=== PATIENT | female | born 1990 | race Caucasian/White ===

== ENCOUNTER 2023-10-15 18:49 | Emergency (ER) | payer MEDICARE, BC, OTHER, SELFPAY ==
[2023-10-15 18:58] VITALS: BP 125/79
--- NOTE | 2023-10-15 19:03 | EDRN ---
AT 1845 UPON PT ARRIVAL TO THE ER PT COMBATIVE WITH ALL POLICE AND SECURITY SPITTING AT THEM WELL. PT SUBSEQUENTLY PLACED IN 4 POINT LOCKED RESTRAINTS. MD ARMAS AWARE AND RESTRAINTS ORDERED. NO MEDS GIVEN @ THIS TIME.
--- NOTE | 2023-10-15 19:06 | EDRN ---
DURING RN INITIAL ASSESSMENT PT WOULD NOT ANSWER QUESTIONS. TOLERATED VS.
--- NOTE | 2023-10-15 19:07 | EDRN ---
MD. ARMAS @ BEDSIDE.
--- NOTE | 2023-10-15 19:08 | EDRN ---
PER OFFICER JURGEN PT DID NOT HAVE ANY WEAPONS ON HER AND DID CHECK PATIENT FOR WEAPONS
--- NOTE | 2023-10-15 19:11 | ED.GENMED ---
History of Present Illness
General
Chief Complaint: Crisis Evaluation
Source: patient and police
Exam Limitations: none
Time Seen by Provider: 10/15/23 19:04
History of Present Illness
History of Present Illness:
32-year-old female brought in by police apparently threatening to hurt the police and a Bomb threat. States she wanted to kill people and the police. This was not stated to me. On hearing the secondhand. Patient does have a psychiatric history.
She states she is on a depressants and antianxiety medications. She is not sure the name. She states she did not take an overdose or try to hurt herself. She has no specific medical complaints at this time. She apparently is known to crisis.
Past History
Past History
ED Past Medical History: Psychiatric (Depression, anxiety, self-mutilation, suicidal ideation, anorexia, bulimia, compression fracture at C2); Negative Asthma, HTN, Hypercholesterolemia or NIDDM
ED Past Surgical History: None and Other (Multiple surgeries on the left forearm from putting foreign bodies under her skin)
Social History
Tobacco: Non-smoker
Alcohol: None
Drug: None
Personal: Single
Living: with family (custodial and family)
Employment: Not employed
Family History
Family History: Diabetes and Adopted
Review of Systems
Review of Systems
All Other Systems: Not applicable
Respiratory: Reports no symptoms
Cardiac: Reports no symptoms
ABD/GI: Reports no symptoms
Phy Exam
Physical Exam
Physical Exam:
GENERAL: Alert and oriented in no apparent distress. No signs of scalp trauma.
EYE: Orbits normal.
NECK: Supple
ENT: Pharynx without erythema
CARDIAC: Regular rate and rhythm without any obvious murmurs.
LUNGS: Clear breath sounds,normal
ABDOMEN: Soft, without focal tenderness or distention
NEUROLOGICAL: Alert and oriented , grossly non-focal
SKIN: Warm and dry, old scars to the left arm
MUSCULOSKELETAL: No edema,no deformity.Good color
PSYCH: Normal and appropriate interaction. Actually, very cooperative
Course
Orders/Labs/Results
Orders:
Orders
10/15/23 19:02
1:1 Observation - Suicide/ Violent Behavior As Directed
10/15/23 19:09
Crisis Consult Urgent
Reason for Consult: hallucinations
Vital Signs
Initial and Last Documented VS:
Initial Vital Signs
Resp
16
10/15/23 18:52
Last Documented Vital Signs
Temp Pulse Resp BP Pulse Ox
97.8 F 87 16 125/79 95
10/15/23 19:00 10/15/23 18:58 10/15/23 18:58 10/15/23 18:58 10/15/23 18:58
MDM/Problems Addressed
Differential Diagnosis Includes:
Patient cooperative at this time. Does not want any medications to call her. I cannot force anything on her at this time. She also refuses labs. Clinically no acute medical issues. Discussed with crisis.
*Critical Care Note
Total Time (30-74mins, 75-104mins- exclusive of procedures): Not Applicable
Data Reviewed
Review of Other/Old Records Reveals: Records
Update Note
Update Note:
302 upheld and signed. Seen by telepsych.
ED Attending Note
-
Portions of this chart may have been created with voice recognition software.� Occasional wrong word or��sound alike� substitutions may have occurred due to the inherent limitations of voice recognition software.
Discharge Plan
Departure
Patient Disposition: Psych Facility
Date of Disposition: 10/16/23
Time of Disposition: 01:00
Discharge Problem:
Threatening behavior, Bipolar disorder
Prescriptions:
No Action
prazosin 5 MG capsule
5 mg PO HS
haloperidol 2 MG tablet
2 mg PO Q8 Qty: 0 0RF
diphenhydramine HCl [Banophen] 25 MG capsule
50 mg PO BID Qty: 0 0RF
gabapentin 300 MG capsule
300 mg PO TID Qty: 0 0RF
haloperidol 2 MG tablet
2 mg IM Q8HPRN PRN (Reason: agitation) Qty: 0 0RF
Rx Instructions:
may give PO if pt willing
Referrals:
UNKNOWN - PT DOES,NOT KNOW [Family Provider] -
Interventions
Interventions:
*Risk Screen - Suicide Last Done: 10/15/23 18:52
*General Assessment Last Done: 10/15/23 18:52
*Neglect/Abuse Screening Last Done: 10/15/23 18:52
*ED COVID-19 Vaccine History Last Done: 10/15/23 18:52
ED-Psychological Assessment Last Done: 10/15/23 18:52
Discharge Date and Time
Print Language: FIJIAN
--- NOTE | 2023-10-15 19:35 | EDRN ---
1930 DURING RESTRAINT DOCUMENTATION PTS RUE MOVED FROM POSITION ABOVE HEAD TO HER SIDE. PT SAT UPRIGHT AND PILLOW PLACED BEHIND HEAD.
--- NOTE | 2023-10-15 20:03 | EDRN ---
1951 PT CALM AND COOPERATIVE EXPRESSED NEED TO VOID. SECURITY AGREES WITH RN OK TO REMOVE RESTRAINTS AT THIS TIME. PT AMBULATORY WITH STEADY GAIT TO BATHROOM AND BACK. REMAINS CALM AND COOPERATIVE. ASKED POLITELY FOR JOURNAL TO WRITE IN. PT PROVIDED
WITH CRAYONS AND NOTE PAD. PT GIVEN DIET GINGERALE PER REQUEST. PT PROVIDED WITH BOXED LUNCH PER REQUEST.
--- NOTE | 2023-10-15 21:05 | EDRN ---
PT PROVIDED WITH SECOND BOXED LUNCH AND 2ND DIET GINGERALE PER REQUEST. PT REQUESTING CHOCOLATE. PT AWARE THE ED DOES NOT HAVE CHOCOLATE TO GIVE TO PATIENTS. PT REMAINS REFUSING TO CHANGE.
--- NOTE | 2023-10-15 21:32 | EDRN ---
PT REQUESTING CRISIS COME SPEAK WITH HER IN PERSON. PT AWARE OF TELEPSYCH CALL. CRISIS CALL AND REQUESTED A MEMBER FROM THEIR TEAM COME AND SPEAK WITH PT AT BEDSIDE.
[2023-10-16] MEDS: ATIVAN 1 MG PO (03:49)
[2023-10-16 03:50] VITALS: BP 106/55
[2023-10-16 03:54] VITALS: BMI 31.4
[2023-10-16] MEDS: ATIVAN PO (08:15)
--- NOTE | 2023-10-16 08:23 | EDRN ---
Patient requesting morning medication, per patient EMR ativan ordered for am was given at 03:49, patient states she does not need additional ativan at this time and does not know the name of the other medication she wanted. Patient is scheduled for
transport to [place] at 08:30.
== END 2023-10-16 09:50 ==
LOC: EMR 18:49
PROVIDERS: EMERGENCY PHYSICIAN Emergency Medicine
DX: R45.6 Violent behavior (principal); F31.9 Bipolar disorder, unspecified
CPT/HCPCS: 99285

== ENCOUNTER 2024-03-15 12:37 | Emergency (ER) | payer MEDICARE, BC, SELFPAY ==
[2024-03-15 12:41] VITALS: BP 132/76
--- NOTE | 2024-03-15 13:10 | ED.GENMED ---
History of Present Illness
<Clive Ceballos MD - Last Filed: 03/16/24 22:34>
General
Chief Complaint: Skin Surface Trauma
Time Seen by Provider: 03/15/24 13:04
History of Present Illness
History of Present Illness:
Patient is a 33-year-old female with history of psychiatric disorder and secondary foreign body insertions through her skin in the left arm. She presents to the emergency department with 2 pencils inserted into her left forearm. This happened
about 1 hour ago. She states that her hand feels numb. she endorses suicidality
Past History
<Clive Ceballos MD - Last Filed: 03/16/24 22:34>
Past History
ED Past Medical History: Psychiatric (Depression, anxiety, self-mutilation, suicidal ideation, anorexia, bulimia, compression fracture at C2); Negative Asthma, HTN, Hypercholesterolemia or NIDDM
ED Past Surgical History: None and Other (Multiple surgeries on the left forearm from putting foreign bodies under her skin)
Social History
Tobacco: Non-smoker
Alcohol: None
Drug: None
Personal: Single
Living: with family (skilled nursing and family)
Employment: Not employed
Family History
Family History: Diabetes and Adopted
Phy Exam
<Clive Ceballos MD - Last Filed: 03/16/24 22:34>
Physical Exam
Physical Exam:
General: No acute distress
Head: NCAT
Neck, Normal in appearance, no swelling
Respiratory: No Respiratory distress
Abdomen: No distension
: (Pelvic exam performed by MAURO Caal) no FB visualized. No bleeding or trauma noted
Ext: Left upper extremity with punctate lesions and palpable hard foreign bodies to dorsal forearm. Limited wrist extension, intact to light touch throughout though she states she feels '[id number]' palpable radial pulse
Neuro: BULLOCK, AOx4
Psych: Flat affect, endorses suicidal ideation
Skin: Normal color
Course
<Clive Ceballos MD - Last Filed: 03/16/24 22:34>
Orders/Labs/Results
Orders:
Orders
03/15/24 13:07
Test Result ONCE
03/15/24 13:17
CR Forearm - Left 2 View Urgent
Comment:
Reason For Exam: foreign body
03/15/24 13:25
1:1 Observation - Suicide/ Violent Behavior As Directed
03/15/24 13:41
Basic Metabolic Panel Urgent
Complete Blood Count/With Diff Urgent
HCG, Serum Qualitative Screen Urgent
PTT Urgent
Prothrombin Time Urgent
Urine Drug Abuse Screen Urgent
Date Specimen was Collected: 03/15/24
Time Specimen was Collected: 13:19
03/15/24 13:56
Crisis Consult Urgent
Reason for Consult: harm to self
03/15/24 14:09
CR Pelvis Comp Min 3 Views Urgent
Comment:
Reason For Exam: possible inserted pencils in rectum/vagina
03/15/24 14:15
CeFAZolin 2 GRAM [Ancef] 2 grams in 10 ml IV NOW
03/15/24 20:00
Telemedicine Psychiatry Conslt Urgent
Service Line: Psychiatric
Nursing Station
Ordering Physician: Shelly Barros
Referring Physician
Cart Name: Jair
Psych Consult Reason: Suspect self/harm others
Psychiatry Consult Location: ED
Patient Needs to be Seen Emergently: Yes
Patient Admitted for NonPsychiatric Reasons: No
Patient in Restraints: No
Patient Requires a Cable Installer Repairer Helper: No
Patient's Legal Status is Involuntary: No
Patient Requires a Guardian: No
Abnormal Lab Results
03/15/24
13:41
WBC 12.9 H 10^3/uL
(4.8-10.8)
Absolute Neuts (auto) 9.8 H 10^3/uL
(1.4-6.5)
Absolute Monos (auto) 0.8 H 10^3/uL
(0.1-0.6)
Neutrophils % 75.8 H %
(42.2-75.2)
Lymphocytes % 16.1 L %
(20.5-51.1)
03/15/24 13:41
03/15/24 13:41
Vital Signs
Initial and Last Documented VS:
Initial Vital Signs
Temp Pulse Resp BP Pulse Ox
98 F 98 16 132/76 98
03/15/24 12:41 03/15/24 12:41 03/15/24 12:41 03/15/24 12:41 03/15/24 12:41
Last Documented Vital Signs
Temp Pulse Resp BP Pulse Ox
98 F 71 18 115/70 99
03/15/24 12:41 03/15/24 18:58 03/15/24 18:58 03/15/24 18:58 03/15/24 18:58
<Shelly Barros MD - Last Filed: 03/15/24 21:55>
Orders/Labs/Results
Orders:
Orders
03/15/24 13:07
Test Result ONCE
03/15/24 13:17
CR Forearm - Left 2 View Urgent
Comment:
Reason For Exam: foreign body
03/15/24 13:25
1:1 Observation - Suicide/ Violent Behavior As Directed
03/15/24 13:41
Basic Metabolic Panel Urgent
Complete Blood Count/With Diff Urgent
HCG, Serum Qualitative Screen Urgent
PTT Urgent
Prothrombin Time Urgent
Urine Drug Abuse Screen Urgent
Date Specimen was Collected: 03/15/24
Time Specimen was Collected: 13:19
03/15/24 13:56
Crisis Consult Urgent
Reason for Consult: harm to self
03/15/24 14:09
CR Pelvis Comp Min 3 Views Urgent
Comment:
Reason For Exam: possible inserted pencils in rectum/vagina
03/15/24 14:15
CeFAZolin 2 GRAM [Ancef] 2 grams in 10 ml IV NOW
03/15/24 20:00
Telemedicine Psychiatry Conslt Urgent
Service Line: Psychiatric
Nursing Station
Ordering Physician: Shelly Barros
Referring Physician
Cart Name: Jair
Psych Consult Reason: Suspect self/harm others
Psychiatry Consult Location: ED
Patient Needs to be Seen Emergently: Yes
Patient Admitted for NonPsychiatric Reasons: No
Patient in Restraints: No
Patient Requires a Cable Installer Repairer Helper: No
Patient's Legal Status is Involuntary: No
Patient Requires a Guardian: No
Abnormal Lab Results
03/15/24
13:41
WBC 12.9 H 10^3/uL
(4.8-10.8)
Absolute Neuts (auto) 9.8 H 10^3/uL
(1.4-6.5)
Absolute Monos (auto) 0.8 H 10^3/uL
(0.1-0.6)
Neutrophils % 75.8 H %
(42.2-75.2)
Lymphocytes % 16.1 L %
(20.5-51.1)
03/15/24 13:41
03/15/24 13:41
Vital Signs
Initial and Last Documented VS:
Initial Vital Signs
Temp Pulse Resp BP Pulse Ox
98 F 98 16 132/76 98
03/15/24 12:41 03/15/24 12:41 03/15/24 12:41 03/15/24 12:41 03/15/24 12:41
Last Documented Vital Signs
Temp Pulse Resp BP Pulse Ox
98 F 71 18 115/70 99
03/15/24 12:41 03/15/24 18:58 03/15/24 18:58 03/15/24 18:58 03/15/24 18:58
Procedures
<Clive Ceballos MD - Last Filed: 03/16/24 22:34>
Foreign Body Removal-Skin
Wound explored and foreign body removed?: Yes
Anesthesia: 1%lidocaine w/epinephrine
Foreign body removed using: irrigation, forceps and incision
Foreign body removed: completely (two broken colored pencils removed. wound thoroughly irrigated, packed with 1inch iodoform packing)
<Clive Ceballos MD - Last Filed: 03/16/24 22:34>
*Critical Care Note
Total Time (30-74mins, 75-104mins- exclusive of procedures): Not Applicable
<Clive Ceballos MD - Last Filed: 03/16/24 22:34>
Update Note
Update Note:
reexamined patient after FB removal
5/5 WE/WF
intact OK sign, 2-3x, TO, TU
SILT throughout
pulses strong
<Shelly Barros MD - Last Filed: 03/15/24 21:55>
Update Note
Update Note:
reexamined patient after FB removal
5/5 WE/WF
intact OK sign, 2-3x, TO, TU
SILT throughout
pulses strong
950 PM....Pt met with crisis, they confirmed that pt a member of PHP program (9a-4p) each day, given holidays had interaction with mom which precipitated event today. She has an appt tomorrow AM with intensive CM and resumes PHP on Sunday. Pt
denies si/hi, regrets her actions,a nd would like to gohome with mom jeffry. Pt seen by telepsych, who feels pt no longer meet criteria for inpatient care and recommend outpt care.
Wound is dressed, without bleeding/drainage. Will rx keflex, close wound instructinos, etc.
ED Attending Note
<Clive Ceballos MD - Last Filed: 03/16/24 22:34>
ED Attending Note
ED Attending Note:
Patient presents with multiple foreign body insertions. 2 intact (half) pencils removed from forearm at the bedside by myself. Pocket was thoroughly irrigated with saline and packed with iodoform. Discussed case with on-call orthopedist
Didi. Patient given a dose of Ancef.
Patient signed out to oncoming doctor pending crisis evaluation for possible 302 versus voluntary admission for self-harm and mutilation
-
Portions of this chart may have been created with voice recognition software.� Occasional wrong word or��sound alike� substitutions may have occurred due to the inherent limitations of voice recognition software.
Discharge Plan
Departure
Patient Disposition: Home (Routine Discharge)
Date of Disposition: 03/15/24
Time of Disposition: 21:52
Patient with high blood pressure during this ER visit?: Yes
Condition: Good
Discharge Problem:
Intentional self-harm
Instructions: Wound Care (DC), BLOOD PRESSURE
Prescriptions:
New
cephalexin 500 mg capsule
500 mg PO Q6H 7 Days Qty: 28 0RF
cephalexin 500 mg tablet
500 mg PO QID Qty: 28 0RF
No Action
haloperidol 5 mg Tablet
5 mg PO BID
haloperidol 5 mg Tablet
5 mg PO DAILYPRN PRN (Reason: anxiety)
oxcarbazepine 300 mg Tablet
300 mg PO DAILY
oxcarbazepine 300 mg Tablet
600 mg PO HS
prazosin 5 mg Capsule
5 mg PO HS
trazodone 100 mg Tablet
100 mg PO HS
hydroxyzine pamoate 25 mg Capsule
25 mg PO BIDPRN PRN (Reason: anxiety)
cholecalciferol (vitamin D3) [Vitamin D3] 25 mcg (1,000 unit) Tablet
50 mcg PO DAILY
Referrals:
UNKNOWN - PT DOES,NOT KNOW [Family Provider] -
Activity Restrictions/Additional Instructions:
YOUR WOUND REMAINS OPEN AND NEEDS TO BE RE ASSESSED BY YOUR FAMILY DOCTOR IN 2-3 DAYS. TAKE THE ANTIBIOTICS DIRECTED. KEEP THE AREA COVERED, CLEAN AND DRY. IF YOU DEVELOP DRAINAGE, FEVER, PAIN, SWELLING, REDNESS, OR OTHER WORRISOME SIGNS, GO TO
THE ER IMMEDIATELY!
Interventions
Interventions:
*Risk Screen - Suicide Last Done: 03/15/24 13:24
*Neglect/Abuse Screening Last Done: 03/15/24 14:01
ED- Fall Risk Assessment Last Done: 03/15/24 14:08
*ED COVID-19 Vaccine History Last Done: 03/15/24 13:55
*Nursing Disposition Last Done: 03/15/24 21:58
ED-Skin Assessment Last Done: 03/15/24 13:55
Discharge Date and Time
Discharge Date/Time: 03/15/24 21:59
Print Language: SETSWANA
[2024-03-15 13:50] LABS: % Basophils 0.3 % (0-2); % Eosinophils 1.1 % (0-6); % Immature Granulocytes 0.3 % (0-0.5); % Lymphocytes 16.1 % (20.5-51.1); % Monocytes 6.4 % (1.7-9.3); % Neutrophils 75.8 % (42.2-75.2); Absolute Eosinophils 0.1 10^3/uL (0-0.7); Absolute Lymphocytes 2.1 10^3/uL (1.2-3.4); Absolute Monocytes 0.8 10^3/uL (0.1-0.6); Absolute Neutrophils 9.8 10^3/uL (1.4-6.5); Hematocrit 39.8 % (37.0-47.0); Hemoglobin 13.6 g/dL (12.0-16.0); Mean Corp Hgb Conc. 34.2 g/dL (33.0-37.0); Mean Corpuscular Hgb 28.3 pg (27.0-31.0); Mean Corpuscular Volume 82.9 fL (81.0-99.0); Nucleated Red Blood Cells % 0 %; Platelet Count 346 10^3/uL (130-400); Red Cell Dist. Width 14.1 % (11.5-14.5); White Blood Cell Count 12.9 10^3/uL (4.8-10.8)
[2024-03-15 14:03] LABS: Amphetamines Negative (Negative); Barbiturates Negative (Negative); Benzodiazepines Negative (Negative); Buprenorphine Negative (Negative); Cocaine Negative (Negative); Marijuana Negative (Negative); Methadone Negative (Negative); Methamphetamines Negative (Negative); Opiates Negative (Negative); Phencyclidine Negative (Negative); Tricyclic Antidepressants Negative (Negative)
[2024-03-15 14:05] LABS: INR 0.95
[2024-03-15 14:06] LABS: APTT 28.2 Sec (23.4-35.0)
[2024-03-15 14:07] LABS: HCG, Serum Qualitative Screen Negative
[2024-03-15 14:09] LABS: Blood Urea Nitrogen 10 mg/dl (7-17); Calcium 9.9 mg/dl (8.4-10.2); Carbon Dioxide 24 mmol/L (22-30); Chloride 100 mmol/L (98-107); Glucose 98 mg/dl (70-99); Potassium 4.1 mmol/L (3.5-5.1); Sodium 137 mmol/L (135-145); eGFR > 60.00
[2024-03-15 14:10] VITALS: BP 111/69
[2024-03-15] MEDS: ANCEF 10 IV (14:55)
[2024-03-15 18:58] VITALS: BP 115/70
== END 2024-03-15 21:59 | disposition home or self-care (01) ==
LOC: EMR 12:37
PROVIDERS: EMERGENCY PHYSICIAN Emergency Medicine
DX: S51.842A Puncture wound with foreign body of left forearm, initial encounter (principal); R20.0 Anesthesia of skin; X83.8XXA Intentional self-harm by other specified means, initial encounter; R45.851 Suicidal ideations; F99 Mental disorder, not otherwise specified; F32.A Depression, unspecified; F41.9 Anxiety disorder, unspecified; Z91.51 Personal history of suicidal behavior; Z88.5 Allergy status to narcotic agent; Z88.8 Allergy status to other drugs, medicaments and biological substances; Z88.1 Allergy status to other antibiotic agents; Z91.040 Latex allergy status
CPT/HCPCS: 99284; 10120; 96374; 72190; 73090; 80048; 80306; 84703; 85025; 85610; 85730

== ENCOUNTER 2024-03-17 13:18 | Emergency (ER) | payer MEDICARE, BC, OTHER, SELFPAY ==
[2024-03-17] VITALS (20 sets, daily range): BP systolic 93–130; BP diastolic 50–98
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
[2024-03-17] MEDS: HALDOL 5 MG IM ×2 (17:58→18:32)
[2024-03-17] MEDS: ATIVAN 2 MG IM ×2 (17:59→18:32)
[2024-03-17] MEDS: KETAMINE HCL 135 MG IM (18:54)
--- NOTE | 2024-03-17 23:11 | EDRN ---
Patient requesting to be removed from all restraints as they are bothering her. I explained that expectations that are required in order to be removed. Patient notes that she is tired and seems very drowsy. Patient unable to stay alert during
conversation and is unable to repeat back the education for restraints to be removed. Bilateral wrist restraints removed one at a time for ROM and adjustment. Patient's lights dimmed for comfort and 1:1 present within visual sight at this time.
[2024-03-18] VITALS (8 sets, daily range): BP systolic 99–123; BP diastolic 62–85
--- NOTE | 2024-03-18 10:39 | ED.CRISIS ---
ED Crisis Note
<Roc Weber DO - Last Filed: 03/18/24 10:42>
ED Crisis Note
Subjective:
Called to room patient apparently put a foreign body in her vagina
Objective:
Foreign body in her vagina 302 completed and upheld
Assessment/Plan:
Mental illness foreign body in her vagina removed by physician tutoring assistant
Will check x-ray
<Maria M Farrell PA-C - Last Filed: 03/18/24 10:43>
ED Crisis Note
Subjective:
I was notified at 10:00 am that patient had told director security risk management that patient had placed additional foreign body in her vagina and rectum. I went in to see patient, patient notes mild vagina pain and bleeding as well. Patient states that she placed
metal in her vagina.
Patient reports that she placed 3 ECG metal leads in her vagina and 2 in her rectum.
Objective:
General: Patient is in no acute distress
Genitourinary: No external vaginal lesions. Scattered blood and discharge within vaginal fault. No cervical lesions. 2 ECG metal pieces removed from vagina. No other pieces visualized or palpated.
Assessment/Plan:
Will send patient for x-ray to assess foreign bodies, attending made aware
--- NOTE | 2024-03-18 12:39 | EDRN ---
At 1030, pt reports putting something up her vagina and rectum. States there also blood in the toilet. RN made Dr. Weber aware. Dr. Weber asked Maria M WADE to go with RN to remove foreign bodies. Pt. agreeable to PA doing exam. Cameras and doorway
covered to maintain pt's privacy. Removed two of the metal tabs from the cardiac sticker from the vagina. Pt. states she put three in her vagina and two in her rectum. Camera uncovered after exam
New blankets given to pt and pt checked to see if she had anymore stickers at this time. No stickers found and clean blankets given to assure nothing in the sheets. While RN walked out of the room to help another pt., security grabbed another RN as
pt. had pulled wire from beneath the bed and stated she inserted it into her vagina. Dr. Weber made aware.
At 1100, pt to be taken over to xray to see foreign bodies. Pt. restrained at this time as she would not willing agree to go and attempting to leave the room. Dr. Weber gave verbal to restrain and take her to xray and will place order. Pt. taken
over with security to xray. Pt. taken back to room with security. Dr. Weber stated they talked with legal last night, stated they can do a pelvic while in restraints. Camera and doorway covered again to maintain pt's privacy. Attempted to do pelvic
with Maria M WADE, kati RN and Laurie VALDES. Pt. refusing to cooperate. Dr. Weber made aware. Natasha VALDES made aware to see what can be done with pt.
Report given to Bharati VALDES @12PM
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
[2024-03-18] MEDS: ATIVAN 1 MG PO ×2 (13:49→21:00)
[2024-03-18] MEDS: COGENTIN 1 MG PO (13:49)
[2024-03-18] MEDS: HALDOL 5 MG PO ×2 (13:49→19:54)
--- NOTE | 2024-03-18 16:11 | ED.ATTNOTE ---
ED Attending Note
<Danny Zamora MD - Last Filed: 03/18/24 20:29>
ED Attending Note
Patient seen and examined by attending physician: Yes
ED Attending Note:
Subjective: 33-year-old female who is here on involuntary psychiatric hold due to self-injurious behavior. She unfortunately has been breaking off medical equipment and placing it in her vagina and rectum throughout the day. She did allow for
bimanual exam to remove the metal stubs from an EKG sticker that she had placed in her vagina. She broke off a sharp metal wire from her bed and put this up into her vagina�she did not tolerate exam to remove this due to abrasions.
Objective: Patient resting in bed not in distress.
Assessment and plan: 33-year-old female with psychiatric history as described who is here on an involuntary psychiatric hold due to self-injurious behavior is has now unfortunately put a sharp metal wire into her vagina and did not tolerate removal
on speculum exam by female physicians assurance assistant here. I had a long discussion with the patient and I explained that there is serious risks with maintaining a foreign body in her vagina including risk of developing toxic shock syndrome or serious
lacerations/puncture from a metal wire. She is agreeable to removal but says that she cannot tolerate removal while awake but is agreeable to removal under light sedation. I do think that this is in the patient's best interest and even if she were
unwilling I do not think she has decision-making capacity at this point as she is actively being held for self-injurious behavior and poor decision making and there is high risk of serious bodily harm from maintaining foreign body in the vagina.
Will proceed with exam under sedation to remove foreign body.
Conscious sedation performed, 2 foreign bodies removed under direct inspection by female physicians assurance assistant. I was present to perform sedation but exam performed by female PA and nursing staff. Wire was removed as well as remaining small metal
stud from EKG lead. Monitor after sedation until completely awake. Will try to remove arm restraints as able; they were placed earlier due to repetitive self-injurious behavior. Patient has been accepted for placement in inpatient psychiatric
unit and pickup time at 9 PM.
-
Portions of this chart may have been created with voice recognition software.� Occasional wrong word or��sound alike� substitutions may have occurred due to the inherent limitations of voice recognition software.
Procedure Note
<Danny Zamora MD - Last Filed: 03/18/24 20:29>
-
Moderate sedation
Time-out performed
Start time: 16:05
Medication: Propofol, total 90mg IV (60mg initial bolus followed by repeat dosing of 30mg)
Stop time: 16:10
Complications: none
Physical Exam
<Danny Zamora MD - Last Filed: 03/18/24 20:29>
Vital Signs
Vital Signs
Temp Pulse Resp BP Pulse Ox
36.7 C 94 18 111/70 98
03/18/24 16:02 03/18/24 16:40 03/18/24 16:40 03/18/24 16:40 03/18/24 16:40
<Maria M Farrell PA-C - Last Filed: 03/18/24 16:48>
Vital Signs
Vital Signs
Temp Pulse Resp BP Pulse Ox
36.7 C 94 18 111/70 98
03/18/24 16:02 03/18/24 16:40 03/18/24 16:40 03/18/24 16:40 03/18/24 16:40
Physical Exam
Speculum exam performed by me (Maria M Farrell PA-C)
General: Patient well appearing and in no acute distress
Genitourinary: No external lesions. Scant bloody discharge noted within the vaginal vault. No cervical lesions. Bundled white wire noted in front of cervix, removed with curved forceps. Bimanual exam performed, last ECG lead piece removed.
<Danny Zamora MD - Last Filed: 03/18/24 20:29>
Update Note
Update Note:
19:30--I was called by the patient's nurse, apparently when we de-escalated restraints patient then tore open an old wound on her left forearm which now is a gaping laceration down to the fascia. Laceration irrigated and repaired as documented in
procedure note. Clean dressing applied. Will plan to place in mitts to avoid further self-injurious behavior. Monitor pending transport.
Procedure Note
<Danny Zamora MD - Last Filed: 03/18/24 20:29>
-
Laceration repair
Skin was anesthetized with approximately 5 cc of 1% lidocaine with epinephrine
Wound was vigorously irrigated under pressure with normal saline
Minor debridement of wound
Layered closure performed using simple interrupted sutures
Using 3-0 Vicryl deep layer was closed using 4 simple interrupted sutures
Using 3-0 Monocryl superficial layer closed using 8 subcuticular sutures
Steri-Strips and Dermabond applied over wound
Sterile dressing applied overlying
Update
<Danny Zamora MD - Last Filed: 03/18/24 20:29>
Progress Note Update
20:28--Mitts were removed and patient went to the bathroom and apparently put a wad of toilet paper up her vagina. Removed by female nurse practitioner. Mitts replaced. Transport pending, ETA 30 minutes.
== END 2024-03-18 21:15 ==
LOC: EMR 13:18
PROVIDERS: CONSULT PHYSICIAN Psychiatry & Neurology Psychiatry; EMERGENCY PHYSICIAN Emergency Medicine; FAMILY PHYSICIAN Internal Medicine
DX: S51.822A Laceration with foreign body of left forearm, initial encounter (principal); S51.802A Unspecified open wound of left forearm, initial encounter; S30.814A Abrasion of vagina and vulva, initial encounter; T19.2XXA Foreign body in vulva and vagina, initial encounter; W44.8XXA Other foreign body entering into or through a natural orifice, initial encounter; R45.6 Violent behavior; R45.1 Restlessness and agitation; X83.8XXA Intentional self-harm by other specified means, initial encounter; R03.0 Elevated blood-pressure reading, without diagnosis of hypertension; F41.9 Anxiety disorder, unspecified; F32.A Depression, unspecified; F50.20 Bulimia nervosa, unspecified; F31.9 Bipolar disorder, unspecified; F43.10 Post-traumatic stress disorder, unspecified; J45.909 Unspecified asthma, uncomplicated; Z91.148 Patient's other noncompliance with medication regimen for other reason; Z91.51 Personal history of suicidal behavior; Z91.52 Personal history of nonsuicidal self-harm; Z88.5 Allergy status to narcotic agent; Z88.8 Allergy status to other drugs, medicaments and biological substances; Z88.1 Allergy status to other antibiotic agents; Z91.040 Latex allergy status; Z91.011 Allergy to milk products
CPT/HCPCS: 99285; 96372 ×5; 13120; 99152; 73090; 74018

== ENCOUNTER 2024-04-18 14:41 | Emergency (ER) | payer MEDICARE, BC, OTHER, SELFPAY ==
[2024-04-18] VITALS (16 sets, daily range): BP systolic 113–150; BP diastolic 61–84; BMI 36.3
[2024-04-18 14:52] LABS: Glucose - Point of Care 241 mg/dl (70-99)
[2024-04-18] MEDS: NSS 1000 IV (15:30)
[2024-04-18 15:33] LABS: Hematocrit 38.1 % (37.0-47.0); Hemoglobin 12.7 g/dL (12.0-16.0); Mean Corp Hgb Conc. 33.3 g/dL (33.0-37.0); Mean Corpuscular Hgb 27.4 pg (27.0-31.0); Mean Corpuscular Volume 82.1 fL (81.0-99.0); Mean Platelet Volume 8.8 fL (7.4-10.4); Platelet Count 290 10^3/uL (130-400); Red Blood Cell Count 4.64 10^6/uL (4.20-5.40); Red Cell Dist. Width 13.1 % (11.5-14.5); White Blood Cell Count 23.1 10^3/uL (4.8-10.8)
[2024-04-18 15:37] LABS: INR 0.95
[2024-04-18 15:38] LABS: APTT 25.7 Sec (23.4-35.0)
[2024-04-18 15:42] LABS: Urine Albumin 2+ (Neg - Trace); Urine Bilirubin Negative (Negative); Urine Character Clear (Clear); Urine Color Yellow; Urine Glucose 2+ (Negative); Urine Ketone Negative (Negative); Urine Leukocyte 1+ (Negative); Urine Nitrite Negative (Negative); Urine Occult Blood 2+ (Negative); Urine Specific Gravity 1.015 (<1.030); Urine Urobilinogen Negative (Neg - 1+)
[2024-04-18 15:43] LABS: Acetaminophen < 10 ug/ml (10-30); Albumin 3.9 g/dl (3.5-5.0); Alkaline Phosphatase 114 U/L (38-126); Blood Urea Nitrogen 8 mg/dl (7-17); Calcium 8.3 mg/dl (8.4-10.2); Carbon Dioxide 16 mmol/L (22-30); Chloride 91 mmol/L (98-107); Estimated Creatinine Clearance 80 ml/min; Glucose 243 mg/dl (70-99); Potassium 3.3 mmol/L (3.5-5.1); Sodium 126 mmol/L (135-145); Total Bilirubin 0.2 mg/dl (0.2-1.3); Total Protein 6.9 g/dl (6.3-8.2); eGFR > 60.00
[2024-04-18 15:49] LABS: Alcohol None Detected
--- NOTE | 2024-04-18 15:55 | ED.GENMED ---
History of Present Illness
General
Chief Complaint: CODE
Source: records, family, ambulance crew and police
Exam Limitations: clinical condition
Time Seen by Provider: 04/18/24 14:59
Nursing documentation reviewed up to this point in time: agreed with
History of Present Illness
History of Present Illness:
33-year-old female with history as documented notable for history of self-mutilation and multiple suicide attempts who presents to the emergency room via EMS status post cardiac arrest. Patient apparently has been staying at [facility].
Unfortunately was found to have this fixated herself with a sweatshirt prior to arrival�apparently according to police review of surveillance footage shows patient entering her room 9 minutes prior to being discovered. She was found with a
sweatshirt wrapped around her neck, the other end attached to a doorknob, hanging backwards using her body weight. On being discovered EMS was called, police arrived at the scene shortly after call and patient was pulseless and CPR initiated. EMS
arrived 5 minutes later on their arrival patient was apneic, pulseless. She was intubated, CPR initiated and she received 12 minutes of CPR, 3 rounds of epinephrine from EMS. Total 17 minutes of CPR, roughly 26-minute downtime total. After ROSC
patient normotensive, tachycardic, transported to the ER.
Past History
Past History
ED Past Medical History: Psychiatric (Depression, anxiety, self-mutilation, suicidal ideation, anorexia, bulimia, compression fracture at C2); Negative Asthma, HTN, Hypercholesterolemia or NIDDM
ED Past Surgical History: None and Other (Multiple surgeries on the left forearm from putting foreign bodies under her skin)
Social History
Tobacco: Non-smoker
Alcohol: None
Drug: None
Personal: Single
Living: with family (prison and family)
Employment: Not employed
Family History
Family History: Diabetes and Adopted
Review of Systems
Review of Systems
Unable to obtain full review of systems at this time due to: due to acuity
All Other Systems: Not applicable
Phy Exam
Physical Exam
Physical Exam:
General: Obtunded, intubated
Head: Normocephalic, atraumatic
Eyes: Conjunctiva normal, pupils 6 mm dilated and sluggish bilaterally
Throat: Intubated
Neck: Trachea midline, cervical collar applied on arrival prior to transport from EMS stretcher, no clear ligature alarcon
Lungs: Bilateral breath sounds present
Heart: Tachycardia with regular rhythm, no murmurs, gallops, or rubs
Abd: Soft, non distended
Neuro: Unresponsive
Skin: Wound on left forearm chronic
Extremities: Cool to the touch, no edema
Scores
Heart Failure Risk
Heart Failure Risk Score: Not Applicable
Heart Score for Chest Pain Patients
STEMI patient?: Not applicable
Withdrawal Assessment of Alcohol
Withdrawal Assessment Completed?: Not applicable
Course
Orders/Labs/Results
Orders:
Orders
04/18/24 Breakfast
NPO
Allow oral meds: No
Allow clear liquids: No
NPO with Ice Chips: No
Comment: may receive medications via tube if ordered
04/18/24 14:48
Portable Chest Xray [CR Chest Portable - 1 View] Urgent
Comment:
Reason For Exam: CODE
Reason Study Needs to be Portable: Unable to Transport
04/18/24 14:59
[address] Cervical Spine W/o Iv Contr Urgent
Comment:
Reason For Exam: hanging
CT Head & Neck Angio W/wo IV Urgent
Comment:
Reason For Exam: hanging
04/18/24 15:00
Electrocardiogram (*1) Urgent
Reason for Study: Bradycardia / Tachycardia
EKG- Treatment ONCE
Barros Placement- Treatment ONCE
Reason for insertion: I&O's Critical Care
04/18/24 15:01
0.9% Sodium Chloride 1000 ml [Nss] 1,000 ml IV BOLUS
04/18/24 15:07
Acetaminophen Urgent
Alcohol Urgent
Complete Blood Count/With Diff Urgent
Comprehensive Metabolic Panel Urgent
Lipase Urgent
Magnesium Urgent
PTT Urgent
Prothrombin Time Urgent
Salicylate Urgent
Triglycerides Urgent
Is patient fasting: Yes
Comment: TRIG ADDED ON BY FLOOR 4:10PM 04-18-24
04/18/24 15:29
Drug Screen, Urine [Urine Drug Abuse Screen] Urgent
Date Specimen was Collected: 04/18/24
Time Specimen was Collected:
Fentanyl, Urine Urgent
Urinalysis Reflex To Culture Urgent
Date Specimen was Collected: 04/18/24
Time Specimen was Collected:
Urine Microscopic Reflex Cult Urgent
Urine Culture Urgent
DEE Source: U
Specimen Description:
Date Specimen was Collected: 04/18/24
Time Specimen was Collected: :
04/18/24 15:52
Propofol 1,000,000 Mcg/100 ml [Diprivan] 1,000,000 mcg in 100 ml IV NOW
Indication:: Light Sedation
Begin Infusion:: Now
Goal:: RASS 0 to -2
Maximum dose in mcg/kg/min:: 50
Initial dose based on RASS:: Yes
If RASS is:: +1 or pt hemodynamically unstable (SBP < 90mmHg), initiate at 10 mcg/kg/min
If RASS is:: +2, initiate at 20 mcg/kg/min
If RASS is:: greater than or equal to +3, initiate at 30 mcg/kg/min
Titration Instructions:: Titrate by 5-10 mcg/kg/min every 5 minutes until RASS 0 to -2 achieved.
Taper Instructions:: If RASS is at or below goal for 4 consecutive hours decrease infusion by
Taper Instructions:: 5-10 mcg/kg/min every 2 hours to off.
Over-sedation Instructions:: If CPOT 0-2 (at goal) AND RASS -3 to -5 (below goal) decrease sedative by
Over-sedation Instructions:: 50% first. If pain score remains at goal and RASS remains below goal in
Over-sedation Instructions:: 1 hour, decrease opioid infusion by 50%.
Notify provider:: immediately if patient exhibits signs/symptoms of propofol-related
Notify provider:: infusion syndrome.
Additional Instructions:: Patient MUST be mechanically ventilated and MUST receive analgesia.
04/18/24 15:54
Lactate Level [Lactic Acid] Urgent
04/18/24 16:03
ABG [Arterial Blood Gas] Urgent
%Oxygen/Room Air: 95
04/18/24 16:04
Electrocardiogram (*1) Urgent
Reason for Study: Chest Pain
EKG- Treatment ONCE
04/18/24 16:06
Troponin I Urgent
04/18/24 16:11
Add On- LAB Urgent
Tests Added?: triglycerides
04/18/24 16:20
Admit/Transfer Patient As Directed
Co-Sign Provider:
Level of Care: Inpatient admission
Assign to:: ICU
Physician / Group: sofi valera
Diagnosis: cardiac arrest
Reason for Hospitalization: cardiac arrest
Expected length of stay greater than two midnights?: Yes
ELOS- Estimated Length of Stay in days: 3
I certify the patient meets the requirements for IP care: Yes
04/18/24 16:21
Code Status As Directed
Resuscitation Status: Full Code
PRN Pain Medication Management As Directed
May give lesser potent ordered pain med per pt: Yes
preference::
Protocol:: Medication orders for pain may be administered in a
manner that supports deferring to patient preference
when the pt is:
- Requesting an ordered lesser potent pain medication.
Least to most potent pain medications are defined
as: acetaminophen < NSAID < tramadol < opioids
(morphine, oxycodone, hydromorphone).
- Requesting a lesser dose of the same medication IF
ORDERED.
- Requesting a less intrusive route of administration
if both routes are prescribed by the provider (PO <
IV).
04/18/24 17:32
Fentanyl Citrate/Pf [Sublimaze] 50 mcg IV [id number] PRN
Vecuronium Bradford [Norcuron] 9 mg IV Q1HPRN PRN
INT (Intravenous Needle Therapy) As Directed
Comment: peripheral IV required, consider 2 peripheral IV lines
Ventilator Initial Settings [RESP] Stat
Special Instructions: wean FiO2 to 0.3 as tolerated to keep O2 sats > 92%
04/18/24 17:33
Central Line As Directed
Comment: do not use central line for cold fluids
04/18/24 17:45
FentaNYL 1,000 MCG/100 ML [Sublimaze] 1,000 mcg in 100 ml IV PER PROTOCOL
Indication:: TTM Shivering Prot Step 2
Begin Infusion:: Other
Begin infusion when:: BSAS >/= 1 15 minutes after indicated step 1 bolus
Goal:: BSAS = 0, pain score </= 1, CPOT 0-2
Maximum dose in mcg/hr:: 300
Initial Dose in mcg/hr:: 50
Initial dose other:: initiate at dose indicated above OR titrate dose by 25 mcg/hr
Titration Instructions:: Titrate every 30 minutes if patient exhibits shivering (BSAS >/= 1) or
Titration Instructions:: signs of pain/discomfort (pain score >/= 2, CPOT >/= 3).
Titration Instructions:: Administer bolus dose and titrate by 25 mcg/hr.
Titration Instructions:: if BSAS >/= 1 30 minutes after beginning infusion with boluses,
Titration Instructions:: Proceed to Step 3. Continue to up titrate fentanyl as needed.
Taper Instructions:: If shivering and pain scores are at goal for 4 consecutive hours (BSAS = 0,
Taper Instructions:: pain score </= 1, CPOT 0-2): Decrease dose by 50 mcg/hr every 2 hours.
Taper Instructions:: When dose </= 50 mcg/hr may turn infusion off and consider as needed
Taper Instructions:: intermittent bolus doses only.
Notify provider:: immediately if pt exhibits: chest wall rigidity, hemodynamic instability,
Notify provider:: agitation/pain despite maximum dosing, pain when RASS below goal.
Additional Instructions:: if receiving sedation continue to up titrate analgesia first when available
Additional Instructions:: Patient MUST be mechanically ventilated.
04/18/24 18:00
0.9% Sodium Chloride 500 ml [Nss] 500 ml IV Q30M
Vecuronium Bradford [Norcuron] 60 mg 0.9% Sodium Chloride 250 ml [Nss] 190 ml IV PER PROTOCOL
04/18/24 18:06
ABG [Arterial Blood Gas] Urgent
%Oxygen/Room Air: 95
04/18/24 20:00
Carboxymethylcellulose [Refresh Celluvisc Gel] 1 drops OPHTH BID
Abnormal Lab Results
04/18/24 04/18/24 04/18/24
14:51 15:07 15:29
WBC 23.1 H 10^3/uL
(4.8-10.8)
Abs Immat Gran (auto) 1.5 H 10^3/uL
(0-0.05)
Absolute Neuts (auto) 15.4 H 10^3/uL
(1.4-6.5)
Absolute Lymphs (auto) 4.6 H 10^3/uL
(1.2-3.4)
Absolute Monos (auto) 1.2 H 10^3/uL
(0.1-0.6)
Immature Gran % 6.6 H %
(0-0.5)
Lymphocytes % 19.9 L %
(20.5-51.1)
pH
pCO2
pO2
HCO3
ABG O2 Sat (Measured)
Sodium 126 L mmol/L
(135-145)
Potassium 3.3 L mmol/L
(3.5-5.1)
Chloride 91 L mmol/L
(98-107)
Carbon Dioxide 16 L mmol/L
(22-30)
Glucose 243 H mg/dl
(70-99)
Lactic Acid
Calcium 8.3 L mg/dl
(8.4-10.2)
AST 536 H* U/L
(14-36)
ALT 503 H* U/L
(0-35)
Ur Occult Blood Reflex 2+ A
(Negative)
Leukocyte Esterase Rfl 1+ A
(Negative)
Urine RBC 11-15 A /HPF
(0-2)
Urine WBC (Reflex) 11-15 A /HPF
(0-5)
Urine Bacteria (Reflex) Few A
(Negative)
Urine Glucose 2+ A
(Negative)
Urine Albumin (Reflex) 2+ A
(Neg - Trace)
Salicylates < 1.0 L mg/dl
(2.0-20.0)
Acetaminophen < 10 L ug/ml
(10-30)
U Benzodiazepines Scrn Positive H
(Negative)
POC Glucose 241 H mg/dl
(70-99)
04/18/24 04/18/24 04/18/24
15:54 16:03 18:06
WBC
Abs Immat Gran (auto)
Absolute Neuts (auto)
Absolute Lymphs (auto)
Absolute Monos (auto)
Immature Gran %
Lymphocytes %
pH 7.26 L
(7.35-7.45)
pCO2 36 H mmHg 26 L mmHg
(32-35) (32-35)
pO2 285 H mmHg 251 H mmHg
(83-108) (83-108)
HCO3 16.2 L mmol/L 14.4 L* mmol/L
(21-28) (21-28)
ABG O2 Sat (Measured) 99.8 H % 99.7 H %
(94-98) (94-98)
Sodium
Potassium
Chloride
Carbon Dioxide
Glucose
Lactic Acid 6.9 H* mmol/L
(0.7-2.0)
Calcium
AST
ALT
Ur Occult Blood Reflex
Leukocyte Esterase Rfl
Urine RBC
Urine WBC (Reflex)
Urine Bacteria (Reflex)
Urine Glucose
Urine Albumin (Reflex)
Salicylates
Acetaminophen
U Benzodiazepines Scrn
POC Glucose
04/18/24 15:07
04/18/24 15:07
Vital Signs
Initial and Last Documented VS:
Initial Vital Signs
Temp
34.7 C L
04/18/24 15:00
Last Documented Vital Signs
Temp Pulse Resp BP Pulse Ox
33.8 C L 93 20 115/66 100
04/18/24 18:29 04/18/24 17:00 04/18/24 17:00 04/18/24 17:00 04/18/24 17:00
Procedures
Central Line
Left Femoral:
Indication for procedure:: cooling post cardiac arrest
Procedure completed by: Danny Zamora MD
If no, reason: Emergency procedure
Central line lumen: triple
Number of attempts: 1
Central line complications: none
Sterile dressing applied?: Yes
MDM/Problems Addressed
Differential Diagnosis Includes:
Hypoxic arrest
MDM/Problems Addressed:
33-year-old female presents status post presumed hypoxic arrest in the setting of apparent suicide attempt by hanging. Total downtime estimated 26 minutes, 9 minutes between time last seen on surveillance footage, and CPR by police/EMS. On arrival
here in the emergency room she has a bounding pulse with tachycardia and marginal hypertension. She is normothermic. Saturating appropriately on ventilator. She has appropriate end-tidal CO2. Cervical collar was applied and cervical spine
precautions taken on transport and rolling. Patient completely undressed and evaluated. She arrives with an IO in place we established large-bore IV access. Labs sent off including a CBC and a CMP, coags. Will place a Barros send urinalysis and
UDS. Chest x-ray taken on arrival shows appropriate ET tube placement, no acute pulmonary pathology. Will send for a CT head as well as a CT cervical spine, CTA head and neck. Will check EKG. Reassess after the above.
CT head, cervical spine, angiography reviewed by me no acute pathology noted. Awaiting radiology report. Will maintain cervical collar while obtunded. Discussed with engagement quality consultant will proceed with cooling based on above history. I did place a
left femoral central line to aid with this process. Pending radiology report will plan for admission to ICU on cooling protocol status post hypoxic arrest in the setting of suicide attempt. Parents updated in the emergency room.
CT head, CTA head and neck, CT cervical spine reviewed by radiology no acute pathology noted. Initially discussed case with hospitalist for ICU admission here. I did update the family and after further discussion with the family and apparently a
family member who is an engagement quality consultant at another hospital they are requesting that we transfer the patient to [facility] for further care. Will arrange for transfer. Updated hospitalist.
Patient accepted by Dr. Smallwood at [facility]. Arrange for transport.
Chronic conditions affecting care:
Depression and suicidality
*Radiology
Radiology exam reviewed: preliminary read by ED provider and radiology read reviewed
*Pulse Oximetry
Patient hypoxic: no
*Critical Care Note
Total Time (30-74mins, 75-104mins- exclusive of procedures): 43
comment:
Critical care statement: A total of 43 minutes of critical care time was provided for this patient. This includes management of unstable vital signs, evaluation of the patient at bedside, frequent reassessment, discussion with
consultants/hospitalist, and review of pertinent medical records. This time was separate from time utilized to perform any aforementioned documented procedures
Data Reviewed
Review of Other/Old Records Reveals: Labs and Records
Source: records, family, ambulance crew and police
Patient Management
Discussion with other providers: Hospitalist (Discussed with hospitalist) and Picker / Packer (Discussed with engagement quality consultant)
Escalation/DeEscalation of care consider admission/obs:
Admission indicated
ED Attending Note
-
Portions of this chart may have been created with voice recognition software.� Occasional wrong word or��sound alike� substitutions may have occurred due to the inherent limitations of voice recognition software.
Discharge Plan
Departure
Patient Disposition: Acute Care Hospital
Date of Disposition: 04/18/24
Time of Disposition: 16:15
Discharge Problem:
Cardiopulmonary arrest, Asphyxiation and strangulation, Suicide attempt
Prescriptions:
No Action
haloperidol 5 mg Tablet
15 mg PO BID
oxcarbazepine 300 mg Tablet
300 mg PO DAILY
oxcarbazepine 300 mg Tablet
600 mg PO HS
prazosin 5 mg Capsule
5 mg PO HS
prazosin 1 mg capsule
1 mg PO BID
lorazepam 0.5 mg tablet
0.5 mg PO BIDPRN PRN (Reason: anxiety)
trazodone 150 mg tablet
300 mg PO HS
benztropine 1 mg tablet
1 mg PO BID
Hospital Transfer
Other hospital: [facility]
I certify that the patient requires transfer: Yes
Discussed case with accepting physician: Cl
Reason for transfer: other
Interventions
Interventions:
*Risk Screen - Suicide Last Done: 04/18/24 15:00
*General Assessment Last Done: 04/18/24 15:00
*Neglect/Abuse Screening Last Done: 04/18/24 15:00
*ED COVID-19 Vaccine History Last Done: 04/18/24 15:00
ED- Cardiac Assessment Last Done: 04/18/24 15:00
ED- Pulmonary Assessment Last Done: 04/18/24 17:12
Discharge Date and Time
Print Language: ALBANIAN
[2024-04-18] MEDS: DIPRIVAN 100 IV (16:00)
[2024-04-18 16:05] LABS: % Basophils 0.4 % (0-2); % Immature Granulocytes 6.6 % (0-0.5); % Lymphocytes 19.9 % (20.5-51.1); % Monocytes 5.2 % (1.7-9.3); % Neutrophils 66.9 % (42.2-75.2); Absolute Basophils 0.1 10^3/uL (0-0.2); Absolute Eosinophils 0.2 10^3/uL (0-0.7); Absolute Immature Granulocytes 1.5 10^3/uL (0-0.05); Absolute Lymphocytes 4.6 10^3/uL (1.2-3.4); Absolute Monocytes 1.2 10^3/uL (0.1-0.6); Absolute Neutrophils 15.4 10^3/uL (1.4-6.5); Nucleated Red Blood Cells % 0 %
--- NOTE | 2024-04-18 16:06 | CHAP ---
Emotional and spiritual support offered to Vanna's parents in family waiting area. They declined politely.
[2024-04-18 16:07] LABS: Urine Bacteria Few (Negative); Urine Squamous Cell >30 /LPF (Few)
--- NOTE | 2024-04-18 16:10 | CON.INTV ---
Consultation
Consultation Request
Date/Time Consultation Requested: 04/18/2024
Date/Time Consultation Performed: 04/18/2024
Requesting Provider: Dr. Zamora
Performing Provider: Dr. Cristopher Sarabia
Reason for Consultation: Acute respiratory arrest/suicidal attempt/anoxic brain injury
Medical History
-
History of Present Illness:
This is a 33-year-old woman with history of significant eating disorder, self-mutilation, anxiety/depression, multiple suicidal attempts who was brought in to the emergency room via EMS after cardiac arrest. Apparently hung herself with a
sweatshirt. Apparently patient was found about 9 to 10 minutes after entry into the room per surveillance footage. She is holding herself from the doorknob using her weight.
EMS found the patient upon arrival pulseless, CPR initiated received about 12 minutes of CPR and 3 rounds of epinephrine. Total 70 minutes of CPR and about 26-minute downtime total.
Patient regained spontaneous circulation, normotensive and tachycardic transferred to the the hospital for further care.
I have discussed the case with Dr. Zamora.
Cardiac arrest likely PEA from hypoxemia. EKG in the emergency room with sinus rhythm and first-degree AV block. No specific T wave abnormalities. No arrhythmia has been found.
Patient remains unresponsive with intermittent jerks on ventilator.
CT cervical spine is no evidence for fracture of the spine.
CT head with no evidence for bleeding, suspect some degree of brain edema. Wait for official report.
If official report showed no evidence for significant abnormalities of the brain, we will proceed with targeted temperature protocol
Past Medical History
Past Medical History: Other (See assessment and plan MrLorena)
Social History
Tobacco: Other (Unable to obtain)
Family History
Family History: Unable to Obtain
Allergies / Home Medications
Allergies
Allergy/AdvReac Type Severity Reaction Status Date / Time
bacitracin Allergy Unknown Verified 04/18/24 15:01
[From Neosporin
([id number])]
bacitracin zinc Allergy Unknown Verified 04/18/24 15:01
[From Neosporin
([id number])]
hydromorphone HCl Allergy THROAT Verified 04/18/24 15:01
[From Dilaudid] SWELLING
lactose [Lactose] Allergy diarrheA Verified 04/18/24 15:01
latex [Latex] Allergy Unknown Verified 04/18/24 15:01
morphine Allergy Unknown Verified 04/18/24 15:01
neomycin sulfate Allergy Unknown Verified 04/18/24 15:01
[From Neosporin
([id number])]
olanzapine [From Zyprexa] Allergy Anaphylaxis Verified 04/18/24 15:01
polymyxin B Allergy Unknown Verified 04/18/24 15:01
[From Neosporin
([id number])]
sulfamethoxazole Allergy Unknown Verified 04/18/24 15:01
[From Bactrim]
trimethoprim [From Bactrim] Allergy Unknown Verified 04/18/24 15:01
vancomycin Allergy hives, Verified 04/18/24 15:01
shortness
of breath.
itching
ziprasidone [From Geodon] Allergy Nausea / Verified 04/18/24 15:01
Vomiting
Home Medications
�Medication �Instructions �Recorded �Confirmed �Last Taken �Type
haloperidol 5 mg tablet 15 mg PO BID 03/15/24 04/18/24 03/15/24 History
oxcarbazepine 300 mg tablet 300 mg PO DAILY 03/15/24 04/18/24 03/15/24 History
oxcarbazepine 300 mg tablet 600 mg PO HS 03/15/24 04/18/24 03/14/24 History
prazosin 5 mg capsule 5 mg PO HS 03/15/24 04/18/24 03/14/24 History
benztropine 1 mg tablet 1 mg PO BID 04/18/24 04/18/24 Unknown History
lorazepam 0.5 mg tablet 0.5 mg PO BIDPRN PRN anxiety 04/18/24 04/18/24 Unknown History
prazosin 1 mg capsule 1 mg PO BID 04/18/24 04/18/24 Unknown History
trazodone 150 mg tablet 150 mg PO HS 04/18/24 04/18/24 Unknown History
Review of Systems
-
Unable to Obtain full review of systems at this time due to: Patient Intubation
Vitals / Labs / Diagnostic Testing
Vital Signs
Temp Pulse Resp BP Pulse Ox
93.9 F L 97 15 131/67 100
04/18/24 16:04 04/18/24 16:00 04/18/24 16:00 04/18/24 16:00 04/18/24 16:00
Lab Data
04/18/24 15:07
04/18/24 15:07
Laboratory Results
04/18/24
15:07
PT 13.0
INR 0.95
APTT 25.7
Diagnostic Testing:
Physical Exam
-
HEENT: Normocephalic and Other (ET tube in place)
Cardiovascular: S1/S2
Respiratory: Non-Labored Respirations
GI: Soft and Non Distended
Neurology: Other (Pupils are equal, no significant reaction to light or accommodation. Neck is supple) and Other (Unresponsive on mechanical ventilation. Occasional myoclonic jerks)
Skin: Warm
General: Respiratory Distress (n)
Assessment
-
Status post cardiac arrest-likely PEA due to hypoxemia
Suicidal obtained by hanging
Acute respiratory failure airway protection after suicidal attempt leukocytosis likely
Hyponatremia
Hypokalemia
Metabolic acidosis
Abnormal LFTs likely rhabdo/ischemic injury
Conditions present prior admission:
Paranoid schizophrenia
Depression/anxiety
Anorexia nervosa/bulimia
History of self-mutilation per records
Vitamin D deficiency
Assessment and plan:
Patient is critically ill: Suspect anoxic brain injury, status post hypoxic cardiorespiratory arrest after a suicidal attempt.
Remains unresponsive
Having myoclonic jerks
Pupils are equal but sluggish to react to light.
No nystagmus noted
Occasional blinking to tactile stimuli.
-
Mechanical ventilation settings reviewed
Pulmonary mechanics acceptable. No significant ET tube secretions.
ABG noted, patient slightly hypercapnic.
Respiratory rate was adjusted
Repeat ABG in about 30 minutes.
Chest x-ray reviewed: No acute infiltrate. ET tube in place.
Okay to use low-dose sedation with propofol for myoclonic jerks
-
Suspect anoxic brain injury
Avoid hypotension
Avoid hypoxemia
Discussed with emergency room physician as well as internal medicine primary team, will start targeted temperature protocol.
EEG will be needed
Neurology will need to be consulted
CT cervical spine without fracture
CT head pending but suspect some degree of brain edema.
-
Hemodynamic monitoring, vasopressors will be used as necessary to maintain mean arterial blood pressure above 65 mmHg.
Has not developed hypotension.
Currently normothermic
Pulse ox on the monitor 100%
-
N.p.o.
Head of elevation
NG tube
DVT prophylaxis
-
I personally discussed with the family. I explained them that currently patient is unresponsive and is difficult to determine whether significant anoxic brain injury has occurred at this point.
We will proceed with targeted temperature protocol as soon as possible. I have discussed this with Dr. Zamora from the emergency room. This will be started.
Family is requesting transfer to [facility] or [facility].
Emergency room is working on potential acceptance.
We transferred from the emergency room if accepted
-
Critical care statement: A total of 45 minutes of critical care time was provided for this patient today. This includes management of unstable vital signs, evaluation of the patient at bedside, reviewing the patient's pertinent medical records
including ventilator settings, arterial blood gases, radiographs, microbiology, laboratory evaluations and discussion with primary team, critical care nursing, and respiratory therapy.
[2024-04-18 16:11] LABS: Amphetamines Negative (Negative); Barbiturates Negative (Negative); Benzodiazepines Positive (Negative)
[2024-04-18 16:11] LABS: ALT (SGPT) 503 U/L (0-35); AST (SGOT) 536 U/L (14-36)
[2024-04-18 16:12] LABS: Buprenorphine Negative (Negative); Cocaine Negative (Negative); Marijuana Negative (Negative); Methadone Negative (Negative); Methamphetamines Negative (Negative); Opiates Negative (Negative); Phencyclidine Negative (Negative); Tricyclic Antidepressants Negative (Negative)
[2024-04-18 16:23] LABS: HCO3 16.2 mmol/L (21-28); O2 Saturation % 99.8 % (94-98); PCO2 36 mmHg (32-35); PO2 285 mmHg (83-108); pH 7.26 (7.35-7.45)
[2024-04-18 16:24] LABS: Lipase 179 U/L (23-300); Salicylate < 1.0 mg/dl (2.0-20.0)
[2024-04-18 16:30] LABS: Lactic Acid 6.9 mmol/L (0.7-2.0)
[2024-04-18 16:53] LABS: Fentanyl, Urine Negative (Negative)
[2024-04-18 16:59] LABS: Triglycerides 82 mg/dl (10-149)
[2024-04-18 17:09] LABS: Troponin I < 0.012 ng/ml
[2024-04-18] MEDS: SUBLIMAZE 100 IV (18:20)
[2024-04-18 18:23] LABS: B.E. -9.5 mmol/L; O2 Saturation % 99.7 % (94-98); PCO2 26 mmHg (32-35); PO2 251 mmHg (83-108); pH 7.35 (7.35-7.45)
[2024-04-18 18:24] LABS: O2 Therapy 95
[2024-04-18 18:25] LABS: HCO3 14.4 mmol/L (21-28)
[2024-04-18] MEDS: REFRESH CELLUVISC GEL 1 DROPS OPHTH (18:45)
[2024-04-18] MEDS: NSS 500 IV (18:45)
== END 2024-04-18 18:45 | disposition short-term general hospital (02) ==
LOC: EMR 14:41
PROVIDERS: EMERGENCY PHYSICIAN Emergency Medicine; OTHER PHYSICIAN Internal Medicine Critical Care Medicine
DX: I46.9 Cardiac arrest, cause unspecified (principal); T14.91XA Suicide attempt, initial encounter; X83.8XXA Intentional self-harm by other specified means, initial encounter; F32.A Depression, unspecified; F50.20 Bulimia nervosa, unspecified; F20.0 Paranoid schizophrenia; Z91.52 Personal history of nonsuicidal self-harm; Z91.51 Personal history of suicidal behavior
CPT/HCPCS: 36556; 99291; 96374; 96375; 51702; 96361; 70496; 70498; 71045; 72125; 80053; 80143; 80179; 80306; 80307; 81003; 81015; 82077; 82805; 82962; 83605; 83690; 83735; 84478; 84484; 85025; 85610; 85730; 87086; 93005; Q9967